=== PATIENT | female | born 1995 | race Caucasian/White ===

== ENCOUNTER 2018-10-21 20:44 | Outpatient (CLI) | payer OTHER ==
[2018-10-21 22:12] LABS: ADD UMIC NO; UR AMORPHOUS CRYSTAL FEW /HPF (NONE SEEN); UR ASCORBIC ACID NEGATIVE (NEGATIVE); UR BACTERIA FEW /HPF (NONE SEEN); UR BILIRUBIN (Dip) NEGATIVE (NEGATIVE); UR BLOOD (Dip) NEGATIVE (NEGATIVE); UR CLARITY SLIGHTLY CLOUDY (CLEAR); UR COLOR YELLOW (YELLOW); UR GLUCOSE (Dip) NEGATIVE (NEGATIVE); UR KETONES (Dip) 1+ mg/dL (NEGATIVE); UR LEUKOCYTE ESTERASE (Dip) NEGATIVE Leu/ul (NEGATIVE); UR NITRITE (Dip) NEGATIVE (NEGATIVE); UR RBC 1 /HPF (0-5); UR SQUAMOUS EPITHELIAL CELL FEW /HPF (FEW); UR TOTAL PROTEIN (Dip) NEGATIVE (NEGATIVE); UR UROBILINOGEN (Dip) NEGATIVE (NEGATIVE); UR WBC 1 /HPF (0-5)
== END 2018-10-21 22:00 | disposition home or self-care (01) ==
LOC: OBT 20:44 → L-D 20:45 → OBT 22:00
DX: O47.03 False labor before 37 completed weeks of gestation, third trimester (principal); O99.513 Diseases of the respiratory system complicating pregnancy, third trimester; J45.909 Unspecified asthma, uncomplicated; Z3A.31 31 weeks gestation of pregnancy
CPT/HCPCS: 81001; 81003; 87086

== ENCOUNTER 2018-10-25 15:28 | Inpatient (IN) | payer OTHER ==
[2018-10-25 17:53] LABS: ADD UMIC NO; UR ASCORBIC ACID NEGATIVE (NEGATIVE); UR BILIRUBIN (Dip) NEGATIVE (NEGATIVE); UR BLOOD (Dip) NEGATIVE (NEGATIVE); UR CLARITY CLEAR (CLEAR); UR COLOR STRAW (YELLOW); UR GLUCOSE (Dip) NEGATIVE (NEGATIVE); UR KETONES (Dip) NEGATIVE (NEGATIVE); UR LEUKOCYTE ESTERASE (Dip) NEGATIVE Leu/ul (NEGATIVE); UR NITRITE (Dip) NEGATIVE (NEGATIVE); UR SPECIFIC GRAVITY (Dip) 1.004 (1.003-1.030); UR TOTAL PROTEIN (Dip) NEGATIVE (NEGATIVE); UR UROBILINOGEN (Dip) NEGATIVE (NEGATIVE)
[2018-10-25 18:54] LABS: RUPTURE FETAL MEMBRANES NEGATIVE (NEGATIVE)
[2018-10-25] MEDS ORDERED: MAGNESIUM SULFATE 20 GM/500 ML 500 ML IV (18:56)
[2018-10-25] MEDS ORDERED: BETAMET NA PHOS/AC(6 MG/ML) 2 ML INJ SYG IM (19:00)
[2018-10-25] MEDS ORDERED: MAGNESIUM SULFATE 4 GM/100 ML 100 ML IV (19:00)
[2018-10-25] MEDS ORDERED: MAGNESIUM SULFATE 40GM/1000ML 1,000 ML IV (19:50)
[2018-10-25] MEDS: LACTATED RINGER'S 1,000 ML IV (21:03)
[2018-10-25] MEDS: FLUCONAZOLE 150 MG TAB PO (22:14)
[2018-10-26] MEDS: TERBUTALINE 1 MG/ML INJ SC (00:06)
[2018-10-26] MEDS: LACTATED RINGER'S 1,000 ML IV ×3 (00:45→14:53)
[2018-10-26 12:15] LABS: RUPTURE FETAL MEMBRANES NEGATIVE (NEGATIVE)
== END 2018-10-26 18:40 | disposition home or self-care (01) | DRG 833 ==
LOC: OBT 15:28 → L-D 15:29 → OBT 18:50 → L-D 18:50
DX: O47.03 False labor before 37 completed weeks of gestation, third trimester (principal); Z3A.30 30 weeks gestation of pregnancy
CPT/HCPCS: 76817; 76818; 81003; 84112; 87086